=== PATIENT | female | born 1985 | race Caucasian/White ===

== ENCOUNTER → 2019-04-18 | Outpatient (CLI) | payer MEDICAID, SELFPAY ==
[2019-04-23 13:04] LABS: HPV APTIMA, High Risk Negative (Negative); HPV Reflexed? YES, CHARGE PATIENT
== END | disposition home or self-care (01) ==
LOC: LABSPEC 04-19 12:18
PROVIDERS: Referring Provider Obstetrics & Gynecology; Visit Provider Obstetrics & Gynecology
DX: Z12.4 Encounter for screening for malignant neoplasm of cervix (principal)
CPT/HCPCS: 87624; 88175; G0145

== ENCOUNTER → 2019-07-25 14:28 | Outpatient (CLI) | payer MEDICAID, SELFPAY ==
--- NOTE | 2019-06-30 14:40 | EKG12_ITS ---
Test Reason : PRE OP Blood Pressure : / mmHG Vent. Rate : 056 BPM Atrial Rate : 056 BPM P-R Int : 146 ms QRS Dur : 066 ms QT Int : 392 ms P-R-T Axes : 060 076 061 degrees QTc Int : 378 ms Sinus bradycardia Otherwise normal ECG Confirmed by ANSELMO NIETO, PUSHPA ([id number]), metropolitan editor ZAIDA LEIVA ([id number] on 07/03/2019 10:55:06 AM Referred By: Miles Ledesma Confirmed By:MARK BRIONES MD
[2019-06-30 14:58] LABS: Hematocrit 46.5 % (37-47); Hemoglobin 15.2 g/dL (12.0-15.0); Mean Corp Hgb Conc 32.7 g/dL (32-36); Mean Corpuscular Hgb 28.6 pg (27.0-32.0); Mean Corpuscular Volume 87.6 fL (81-99); Mean Platelet Vol. 10.2 fl (6.2-12.0); Platelet Count 254 K/mm3 (150-450); RBC Distribution Width CV 13.9 % (11.6-14.6); RBC Distribution Width SD 44.2 fl (35.1-43.9); Red Blood Count 5.31 M/mm3 (4.2-5.4); White Blood Count 9.5 K/mm3 (4.4-11.0)
[2019-06-30 15:16] LABS: Prothrombin Time (Protime)PT. 13.4 SECONDS (11.7-14.9)
[2019-06-30 15:17] LABS: Partial Thromboplast Time 29.8 Seconds (24.1-36.2)
[2019-06-30 15:37] LABS: AST(SGOT) 11 U/L (15-37); Alanine Aminotransfer ALT/SGPT 20 U/L (13-56); Albumin, Serum 3.9 g/dL (3.2-5.0); Alkaline Phosphatase 60 U/L (45-117); Bilirubin, Direct 0.13 mg/dL (0.00-0.30); Creatinine, Serum 0.93 mg/dL (0.55-1.02); EST Glomerular Filtration Rate 73 mL/min (>60); Est Glom Filt Rate - Afr Amer 88 mL/min (>60); Globulin 3.8 g/dL (2.2-4.2); Protein, Total 7.7 g/dL (6.4-8.2); Thyroid Stim Hormone (TSH) 0.37 uIU/mL (0.358-3.74)
--- NOTE | 2019-07-02 16:22 | HP.PCM_ITS ---
History and Physical Date of Admission: 07/03/19 Pt called and cancelled surgery on WednesdayJul 02 with no explanation given. Surgical History and Physical Emily Woods, a 33 year old female 3 0 0 0 3, presents for RAVH/BSO on July 03, 2019 at 8:00. -- Chronic Ovarian Cysts and Pain; Menorrhagia; Rash in Luteal Phase -- She is a 33yo female with monthly menses occurring every 21-25days. Menses last 2days of very heavy bleeding, followed by 12days of light spotting which resolves when she ovulates. Pt voices concerns of the reoccurance of hives, laryngitis, swelling in extremities, and most recently edema in her face/lips which occurs the day of ovulation and subsides as soon as her menses start. Menorrhagia which began years ago. and has been present 2 years. It occurs with menses. It is located in the vagina. Severity is severe and not improving; Associated signs and symptoms are recurrent ovarian cysts and pain requiring surgery. 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 MEDICATIONS HISTORY: ALLERGIES: No Known Drug Allergies, Bactrim and Itching of skin Infections - Chicken pox childhood Illnesses - no serious past illnesses Accidents - None Hospitalizations - Childbirth and see surgery Review of Systems: GENERAL - Denies fever, or chills SKIN - Denies skin changes EYES - Denies visual changes EARS - Denies difficulty hearing NOSE - Denies nasal congestion or bleeding MOUTH - Denies sore throat or difficulty swallowing NECK - Denies pain or swelling RESPIRATORY - Denies shortness of breath or wheezing CARDIOVASCULAR - Denies palpitations or chest pain GASTROINTESTINAL - Denies nausea, vomiting, diarrhea, constipation GENITOURINARY - Denies dysuria, frequency of urination, incontinence of urine MUSCULOSKELETAL - Denies joint or muscle pain NEUROLOGICAL - Denies localized numbness or weakness PSYCHIATRIC - Denies depression or anxiety ENDOCRINE - Denies heat or cold intolerance, weight loss or gain HEMATO-IMMUNOLOGIC - Denies excesive bleeding with cuts SOCIAL HISTORY: Alcohol Use - None Smoking - Smokes--advised to quit less than 1 ppd Diet - balanced Diet Lifestyle - moderate stress lifestyle and Exercise - regular Seat Belt Use - always Employer - Unemployed 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 Illicit Drug Use - denies use of street drugs Sexual Activity - Spouse-Sig Other Name - Raffy Spouse-Sig Other Occupation - [employer] Children Name(s) - Johnson(2005), Caitlin(2010), Alonzo(2015) Control - Prior Tubal FAMILY HISTORY: MENSTRUAL HISTORY: LMP Known?- Yes Amount/Duration - excess amount, Regularity - Regular, Frequency - 21-25 days, LMP - 06/09/19, Age Onset Menarche - 11 PAST PREGNANCIES: Total Pregnancies - 3; Full Term Pregnancies - 3; Premature - 0; Abortions, Induced - 0; Abortions, Spontaneous - 0; Ectopics - 0; Multiple Births - 0; Living Children - 3 SURGICAL HISTORY: 1. 07/23/2004 2. 10/30/2009 3. cyst removal from carpenter at age 11 4. Ovarian Cystectomy 2008 5. 05/14/2015 /BTO ; Miles Ledesma M.D. PHYSICAL EXAM BP- 118/64 Sitting, Left arm, regular cuff Weight- 142.68931 lbs Height- 64 inch BMI:24.43 CONSTITUTIONAL - NAD, well nourished, and well developed SKIN - No rash, lesions, or ulcers and severe psoriasis lower extremity HEENT - Normocephalic, PERRLA, EOMI NECK - No nodes, no nuchal rigidity and thyroid normal size and texture LYMPH NODES - Palpation of lymph nodes in neck and groins within normal limits LUNGS - CTA x2 without wheezes, crackles or rales CARDIAC - Regular rate and rhythm without rubs, murmurs, or gallops BREAST - No dominant masses, no tenderness, no axillary adenopathy, no nipple discharge, no skin changes ABDOMEN - Without hepatosplenomegaly, distention, masses, rebound, or guarding; normal bowel sounds; no hernias EXTREMITIES - No edema or calf tenderness and severe psoriasis lower extremity NEUROLOGICAL - Cranial nerves II-XII grossly intact PSYCHIATRIC - A and O to time, place, person, mood and affect External Genital Vagina - non-tender without lesions Urethra/Urethral Meatus - non-tender Bladder - non-tender Vagina - vaginal meraz are pink and moist without loss of rugae and no evidence of atropy Cervix - without cervical motion tenderness and has normal size and features without evident lesions Uterus - enlarged uterus 8 wks, wt 125-150 g Adnexa - mild tenderness both adnexa and no masses ASSESSMENT/PLAN: Ovarian Cyst Nos, Pelvic Pain, Unspec and Premenopause Menorrhagia Discussed options for treatment and unable to use progesterone agents due to autoimmune progesterone dermatitis. Only option would be Lupron or Orilissa which would not be covered by insurance. Given the long standing issues with pelvic pain, menorrhagia, and ovarian cysts, plan to proceed with R AVH/BSO (prior x 3) as this would eliminate progesterone production which is aggravating derm issues. Discussed RBAs of this surgery and all questions answered including possibility of not helping with dermatitis and needing to be on HRT for an indefinite length of time.
== END ==
PROVIDERS: Anesthesiology; Referring Provider Obstetrics & Gynecology; Visit Provider Obstetrics & Gynecology
DX: N83.209 Unspecified ovarian cyst, unspecified side (principal); N92.0 Excessive and frequent menstruation with regular cycle; F17.210 Nicotine dependence, cigarettes, uncomplicated; Z53.9 Procedure and treatment not carried out, unspecified reason; R00.1 Bradycardia, unspecified
CPT/HCPCS: 36415; 80076; 82565; 84443; 85027; 85610; 85730; 86850; 86900; 86901; 93005